=== PATIENT | female | born 1945 | race African-American/Black ===

== ENCOUNTER 2018-12-20 18:58 | Emergency (ER) | payer MEDICAID, MEDICARE ==
[~2018-12-20] VITALS: Ht 160 cm; Wt 78.0 kg
[2018-12-21 00:06] VITALS: BP 133/63
== END 2018-12-21 00:25 | disposition home or self-care (01) ==
LOC: ER 18:58
DX: M79.642 Pain in left hand (principal); M79.641 Pain in right hand; M79.605 Pain in left leg; E78.00 Pure hypercholesterolemia, unspecified; I10 Essential (primary) hypertension
CPT/HCPCS: 73130; 73590; 99283

== ENCOUNTER 2021-06-20 13:43 | Inpatient (IN) | payer MEDICARE, MEDICAID ==
[~2021-06-20] VITALS: Ht 160 cm; Wt 77.6 kg
[2021-06-20] MEDS ORDERED: MORPHINE SULFATE 4 MG/ML CPJ (NOT FOR IM USE) IV STA (15:02)
[2021-06-20] MEDS ORDERED: ONDANSETRON HCL 4MG/2ML INJ IV STA (15:02)
[2021-06-20] MEDS ORDERED: SODIUM CHLORIDE 0.9% 1,000 ML IV ONE (15:15)
[2021-06-20] MEDS ORDERED: MORPHINE SULFATE 2 MG/ML CPJ (NOT FOR IM USE) IV SCH (15:45)
[2021-06-20 15:54] LABS: HEMOGLOBIN. 13.8 g/dL (12.0-16.0); MEAN CORPUSCULAR HEMOGLOBIN 31.1 pg (28.0-32.0); MEAN CORPUSCULAR VOLUME 94.5 fL (81.0-99.0); MEAN PLATELET VOLUME 9.8 fl (7.4-10.4); PLATELET 319 x1000/uL (130-400); RED BLOOD CELL COUNT 4.44 mill/uL (4.2-5.4); RED CELL DISTRIBUTION WIDTH 14.1 % (11.6-14.6)
[2021-06-20 15:56] LABS: CHLORIDE 109 mEq/L (98-107)
[2021-06-20 16:57] LABS: PARTIAL THROMBOPLASTIN TIME 26.5 sec (23.4-31.0)
[2021-06-20 18:49] LABS: PLATELET ESTIMATE NORMAL
[2021-06-20 19:02] LABS: CLARITY URINE CLEAR (CLEAR); COLOR URINE YELLOW (YELLOW); KETONES URINE 1+ (NEGATIVE); LEUKOCYTE ESTERASE URINE NEGATIVE (NEGATIVE); NITRITE URINE NEGATIVE (NEGATIVE); OCCULT BLOOD URINE 1+ (NEGATIVE); PH URINE 5.5 (4.5-8.0); PROTEIN URINE 2+ (NEGATIVE); SPECIFIC GRAVITY URINE 1.024 (1.005-1.030)
[2021-06-21 03:09] VITALS: BP 128/66
[2021-06-21 04:00] VITALS: BP 128/66
[2021-06-21] MEDS ORDERED: ACETAMINOPHEN 325MG TABLET PO PRN (04:30)
[2021-06-21] MEDS ORDERED: ATOR20TA65 PO (04:39)
[2021-06-21] MEDS ORDERED: HYDR-4134 PO (04:40)
[2021-06-21 08:00] VITALS: BP 107/68
[2021-06-21] MEDS: HYDRALAZINE HCL 25MG TABLET PO SCH (08:24)
[2021-06-21 09:32] LABS: HEMATOCRIT. 38.9 % (36.0-48.0); HEMOGLOBIN. 12.9 g/dL (12.0-16.0); MEAN CORPUSCULAR HEMOGLOBIN 29.4 pg (28.0-32.0); MEAN CORPUSCULAR VOLUME 88.8 fL (81.0-99.0); MEAN PLATELET VOLUME 9.5 fl (7.4-10.4); PLATELET 263 x1000/uL (130-400); RED BLOOD CELL COUNT 4.38 mill/uL (4.2-5.4); RED CELL DISTRIBUTION WIDTH 13.5 % (11.6-14.6)
[2021-06-21 12:00] VITALS: BP 125/68
[2021-06-21 13:44] LABS: CHLORIDE 109 mEq/L (98-107)
[2021-06-21 13:55] LABS: CREATINE KINASE MB FRACTION 12.7 ng/mL (0.5-3.6)
[2021-06-21 14:10] LABS: CREATINE KINASE 2995 IU/L (26-192)
[2021-06-21 14:15] LABS: PLATELET ESTIMATE NORMAL
[2021-06-21 15:51] LABS: CREATINE KINASE MB FRACTION 9.3 ng/mL (0.5-3.6)
[2021-06-21 16:00] VITALS: BP 107/68
[2021-06-21 20:00] VITALS: BP 109/72
[2021-06-21] MEDS: ATORVASTATIN CALCIUM 20MG TABLET PO SCH (21:21)
[2021-06-21 23:25] LABS: CREATINE KINASE MB FRACTION 4.9 ng/mL (0.5-3.6)
[2021-06-22] VITALS: BP 110/71
[2021-06-22 04:00] VITALS: BP 98/56
[2021-06-22] MEDS ORDERED: POTASSIUM CHLORIDE 20MEQ TABLET SR PO SCH (07:00)
[2021-06-22 07:27] LABS: VITAMIN B12 SERUM 194 pg/mL (211-911)
[2021-06-22 08:00] VITALS: BP 116/63
[2021-06-22] MEDS: HYDRALAZINE HCL 25MG TABLET PO SCH (09:43)
[2021-06-22] MEDS ORDERED: CEFTRIAXONE 1 G PREMIX 50 ML IV SCH (11:30)
[2021-06-22 12:00] VITALS: BP 128/67
[2021-06-22] MEDS: CEFTRIAXONE 1,000 MG in DEXTROSE 5% WATER 50 ML IV SCH (12:22)
[2021-06-22] MEDS: SODIUM CHLORIDE 0.45% 1,000 ML IV SCH (12:23)
[2021-06-22] MEDS: ASPIRIN 81MG TABLET PO SCH (12:23)
[2021-06-22] MEDS ORDERED: HYDRALAZINE 20MG/ML VIAL IV PRN (13:45)
[2021-06-22] MEDS ORDERED: HYDROCODONE/ACETAMINOPHEN 5/325MG TABLET PO PRN (13:45)
[2021-06-22] MEDS ORDERED: ONDANSETRON HCL 4MG/2ML INJ IV PRN (13:45)
[2021-06-22] MEDS ORDERED: LORAZEPAM 2MG/ML CPJ IV PRN (13:45)
[2021-06-22] MEDS ORDERED: IPRATROPIUM/ALBUTEROL 0.5-3(2.5)MG/3ML NEB HHN PRN (13:45)
[2021-06-22] MEDS ORDERED: NALOXONE HCL 0.4MG/ML VIAL IV PRN (13:45)
[2021-06-22] MEDS ORDERED: BISACODYL 10MG SUPP PR PRN (13:45)
[2021-06-22 16:00] VITALS: BP 108/63
[2021-06-22 17:28] LABS: BASOPHILS % 0.5 % (0.0-2.0); EOSINOPHILS % 2.5 % (0.0-5.0); HEMATOCRIT. 35.6 % (36.0-48.0); LYMPHOCYTES % 12.2 % (20.0-50.0); MEAN CORPUSCULAR HEMOGLOBIN 29.4 pg (28.0-32.0); MEAN CORPUSCULAR VOLUME 87.4 fL (81.0-99.0); MEAN PLATELET VOLUME 9.7 fl (7.4-10.4); MONOCYTES % 8.3 % (2.0-8.0); NEUTROPHILS % 76.5 % (40.0-76.0); PLATELET 255 x1000/uL (130-400); RED BLOOD CELL COUNT 4.08 mill/uL (4.2-5.4); RED CELL DISTRIBUTION WIDTH 13.4 % (11.6-14.6)
[2021-06-22 17:44] LABS: CHLORIDE 103 mEq/L (98-107)
[2021-06-22 17:51] LABS: LDL CHOLESTEROL 85 mg/dL (5-100)
[2021-06-22 17:53] LABS: CREATINE KINASE MB FRACTION 2.3 ng/mL (0.5-3.6)
[2021-06-22 17:56] LABS: HDL CHOLESTEROL 69 mg/dL (40-59)
[2021-06-22 18:12] LABS: CREATINE KINASE 1198 IU/L (26-192)
[2021-06-22 20:00] VITALS: BP 107/57
[2021-06-22] MEDS: ATORVASTATIN CALCIUM 20MG TABLET PO SCH (20:56)
[2021-06-23] VITALS: BP 126/72
[2021-06-23 04:00] VITALS: BP 123/78
[2021-06-23] MEDS: SODIUM CHLORIDE 0.45% 1,000 ML IV SCH ×2 (04:43→17:51)
[2021-06-23 06:50] LABS: BASOPHILS % 0.6 % (0.0-2.0); EOSINOPHILS % 3.8 % (0.0-5.0); HEMATOCRIT. 33.9 % (36.0-48.0); HEMOGLOBIN. 11.5 g/dL (12.0-16.0); LYMPHOCYTES % 17.1 % (20.0-50.0); MEAN CORPUSCULAR VOLUME 91.4 fL (81.0-99.0); MEAN PLATELET VOLUME 9.7 fl (7.4-10.4); MONOCYTES % 8.4 % (2.0-8.0); NEUTROPHILS % 70.1 % (40.0-76.0); PLATELET 234 x1000/uL (130-400); RED BLOOD CELL COUNT 3.71 mill/uL (4.2-5.4); RED CELL DISTRIBUTION WIDTH 13.7 % (11.6-14.6)
[2021-06-23 07:05] LABS: CHLORIDE 103 mEq/L (98-107)
[2021-06-23 08:00] VITALS: BP 119/69
[2021-06-23] MEDS: HYDRALAZINE HCL 25MG TABLET PO SCH (09:01)
[2021-06-23] MEDS: ASPIRIN 81MG TABLET PO SCH (09:01)
[2021-06-23] MEDS: CYANOCOBALAMIN 1000MCG/ML VIAL IM SCH (09:01)
[2021-06-23 12:00] VITALS: BP 105/61
[2021-06-23] MEDS: CEFTRIAXONE 1,000 MG in DEXTROSE 5% WATER 50 ML IV SCH (13:09)
[2021-06-23 16:00] VITALS: BP 121/68
[2021-06-23 20:00] VITALS: BP 128/67
[2021-06-23] MEDS: ATORVASTATIN CALCIUM 20MG TABLET PO SCH (22:34)
[2021-06-24] VITALS (7 sets, daily range): BP systolic 101–135; BP diastolic 63–69
[2021-06-24] MEDS: ASPIRIN 81MG TABLET PO SCH (08:52)
[2021-06-24] MEDS: CYANOCOBALAMIN 1000MCG/ML VIAL IM SCH (08:52)
[2021-06-24] MEDS: HYDRALAZINE HCL 25MG TABLET PO SCH (08:53)
[2021-06-24] MEDS: CEFTRIAXONE 1,000 MG in DEXTROSE 5% WATER 50 ML IV SCH (13:10)
[2021-06-24] MEDS ORDERED: CLOPIDOGREL 75MG TABLET PO NR (14:00)
[2021-06-24] MEDS ORDERED: ENOXAPARIN 40MG/0.4ML SYR SUBCUT SCH (15:00)
[2021-06-24] MEDS: SODIUM CHLORIDE 0.45% 1,000 ML IV SCH (17:34)
[2021-06-25] MEDS ORDERED: CLOPIDOGREL 75MG TABLET PO SCH (09:00)
== END 2021-06-24 22:00 | DRG 64 ==
LOC: ER 14:07 → 7EST 23:51 → ENRESERV 06-21 02:31
PROVIDERS: ADMIT Internal Medicine; ATTEND Internal Medicine
PROC: 4A10X4Z Monitoring of Central Nervous Electrical Activity, External Approach (ICD-10-PCS; principal; 2021-06-22)
DX: I63.9 Cerebral infarction, unspecified (principal); G93.41 Metabolic encephalopathy; M62.82 Rhabdomyolysis; N39.0 Urinary tract infection, site not specified; E44.1 Mild protein-calorie malnutrition; F03.90 Unspecified dementia, unspecified severity, without behavioral disturbance, psychotic disturbance, mood disturbance, and anxiety; E78.00 Pure hypercholesterolemia, unspecified; I10 Essential (primary) hypertension; E87.6 Hypokalemia; E86.0 Dehydration; D72.829 Elevated white blood cell count, unspecified; M48.061 Spinal stenosis, lumbar region without neurogenic claudication; I49.3 Ventricular premature depolarization; R26.89 Other abnormalities of gait and mobility; Z20.822 Contact with and (suspected) exposure to COVID-19; E53.8 Deficiency of other specified B group vitamins; Z60.2 Problems related to living alone; E78.5 Hyperlipidemia, unspecified; M48.02 Spinal stenosis, cervical region; M19.011 Primary osteoarthritis, right shoulder; Z86.73 Personal history of transient ischemic attack (TIA), and cerebral infarction without residual deficits; Z91.81 History of falling; Z87.440 Personal history of urinary (tract) infections
CPT/HCPCS: 36415; 70551; 71045; 72141; 72148; 73030; 73502; 73552; 80048; 80053; 80061; 81003; 82550; 82553; 82607; 83036; 84443; 84484; 85025; 86850; 86900; 93306; 93880; 95816; 97110; 97116; 97162; 97530; 99285; J0696; J1650; J2270; J2405; J3420; J7030; J7060; U0003; U0005